=== PATIENT | female | born 1970 | race Caucasian/White ===

== ENCOUNTER 2019-03-26 13:44 | Outpatient (CLI) | payer BC ==
--- NOTE | 2019-03-26 14:47 | MMO ---
Bilateral MAMMO Bilat Screen [facility]. CLINICAL HISTORY: Patient is 48 years old and is seen for screening. The patient has no family history of breast cancer. The patient has no personal history of cancer. VIEWS: The views performed were: bilateral craniocaudal with tomosynthesis and bilateral mediolateral oblique with tomosynthesis. FILMS COMPARED: The present examination has been compared to prior imaging studies performed at [facility] on 09/27/2014, 12/12/2015, 12/17/2016 and 06/23/2017. MAMMOGRAM FINDINGS: The breasts are heterogeneously dense, which could obscure a lesion on mammography. There are benign appearing densities seen in both breasts. There are no suspicious masses, suspicious calcifications, or new areas of architectural distortion. IMPRESSION: THERE IS NO MAMMOGRAPHIC EVIDENCE OF MALIGNANCY. A ROUTINE FOLLOW-UP MAMMOGRAM IN 1 YEAR IS RECOMMENDED. THE RESULTS OF THIS EXAM WERE SENT TO THE PATIENT. ACR BI-RADS Category 2 - Benign finding MAMMOGRAPHY NOTE: 1. A negative mammogram report should not delay a biopsy if a dominant of clinically suspicious mass is present. 2. Approximately 10% to 15% of breast cancers are not detected by mammography. 3. Adenosis and dense breasts may obscure an underlying neoplasm.
== END 2019-03-26 13:45 | disposition home or self-care (01) ==
LOC: BICMAMMO 13:44
PROVIDERS: ATTEND Internal Medicine
DX: Z12.31 Encounter for screening mammogram for malignant neoplasm of breast (principal)
CPT/HCPCS: 77063; 77067

== ENCOUNTER 2019-05-06 19:30 | Outpatient (CLI) | payer BC | END 2019-05-06 19:31 | disposition home or self-care (01) | LOC: SLEEPLAB 19:30 | PROVIDERS: ATTEND Internal Medicine | DX: G47.33 Obstructive sleep apnea (adult) (pediatric) (principal); R53.83 Other fatigue; R09.89 Other specified symptoms and signs involving the circulatory and respiratory systems; R06.83 Snoring; E66.9 Obesity, unspecified; G47.00 Insomnia, unspecified; G47.10 Hypersomnia, unspecified; Z68.34 Body mass index [BMI] 34.0-34.9, adult | CPT/HCPCS: 95810 ==

== ENCOUNTER 2019-05-12 19:30 | Outpatient (CLI) | payer BC | END 2019-05-12 19:31 | disposition home or self-care (01) | LOC: SLEEPLAB 19:30 | PROVIDERS: ATTEND Internal Medicine | DX: G47.33 Obstructive sleep apnea (adult) (pediatric) (principal); R53.83 Other fatigue; R09.89 Other specified symptoms and signs involving the circulatory and respiratory systems; R06.83 Snoring; G47.00 Insomnia, unspecified; G47.10 Hypersomnia, unspecified; I10 Essential (primary) hypertension; E66.9 Obesity, unspecified; Z68.34 Body mass index [BMI] 34.0-34.9, adult | CPT/HCPCS: 95811 ==

== ENCOUNTER 2019-11-04 07:45 | Outpatient (CLI) | payer BC ==
--- NOTE | 2019-11-04 08:56 | CT ---
CT of theabdomen and pelvis with and without contrast: 11/04/2019 COMPARISON:04/15/2017 HISTORY:Nausea, pain, vomiting, questionable pancreatic abnormality on prior CT performed 2016 TECHNIQUE: Serial axial CT imaging at3 mm intervals from thelung bases through pubic symphysis with a nd without IV contrast, with oral contrast. Coronal and sagittal reformatted imaging. Findings:Atelectatic changes are noted within the right middle lobe and lingula. Cholecystectomy clips are present. No free intraperitoneal air or fluid. Small fat-containing umbilic al hernia. Liver, spleen, pancreas, adrenal glands, and kidneys demonstrate no acute findings. The tail of the pancreas demonstrates a somewhat rounded configuration which measures approximately 1 .8 cm, unchanged when compared to the prior 2017 exam. This is favored to represent a normal pancreatic parenchymal lobulation or a small focus of splenic tissue within the pancreatic tail. This could be best assessed via MRI or nuclear medicine liver spleen scan if clinically warranted. The uterus appears surgically absent. No evidence for bowel inflammatory change or bowel obstruction. The vascular structures of the abdomen/pelvis appear unremarkable. No lymphadenopathy is appreciated within the abdomen or pelvis. Review of the osseous structures demonstrates no worrisome lytic or blastic bone lesion. There is sig nificant lower lumbar spine degenerative change. Impression:No acute findings are noted. There is a stable lobulated area of soft tissue density in th e pancreatic tail which may signify splenic tissue in the pancreatic tail or a pancreatic parenchymal lobulation. Please see above discussion.
[2019-11-04] MEDS ORDERED: Iopamidol-370 76% 500 ML 1 ML ONE (16:21)
== END 2019-11-04 07:46 | disposition home or self-care (01) ==
LOC: BICCT 07:45
PROVIDERS: ATTEND Internal Medicine
DX: K86.89 Other specified diseases of pancreas (principal); Q45.3 Other congenital malformations of pancreas and pancreatic duct
CPT/HCPCS: 74178; Q9967

== ENCOUNTER 2020-03-09 08:57 | Outpatient (CLI) | payer BC ==
--- NOTE | 2020-03-09 11:25 | MRI ---
MRI LUMBAR SPINE 03/09/2020. PROVIDED CLINICAL HISTORY: Lumbar radiculopathy. FINDINGS: Five lumbar vertebral bodies are assumed. Lumbar alignment appears normal. Vertebral body heights a ppear preserved. No focal concerning regional marrow signal abnormality apparent. The conus medulla ris is normal in signal and terminates at an appropriate level. At L1-2, there is Schmorl's node formation within the inferior end plate of L1 and the superior end p late of L2. There is a broad disk bulge without significant central canal or foraminal narrowing cari arent. At L2-3, there is maintenance of disk space height and hydration. There is no significant central ca nal or foraminal narrowing apparent. At L3-4, there is disk space height loss and end plate degenerative change. There is bilateral facet arthritis. There is no significant central canal or foraminal narrowing apparent. At L4-5, there is disk space height loss and a broad-based disk bulge with bilateral facet arthritis. There is moderate right foraminal narrowing with potential for impingement on the exiting right L4 nerve root. There is no significant central canal or left foraminal narrowing apparent. At L5-S1, there is end plate degenerative change and a broad-based disk bulge with bilateral facet ar thritis. There is no significant central canal or foraminal narrowing apparent. IMPRESSION: Lumbar disk and facet degenerative change producing primarily foraminal narrowing as described above. POS: [facility]
== END 2020-03-09 08:58 | disposition home or self-care (01) ==
LOC: TBSIIMAG 08:57
PROVIDERS: ATTEND Internal Medicine
DX: M47.26 Other spondylosis with radiculopathy, lumbar region (principal); M48.061 Spinal stenosis, lumbar region without neurogenic claudication
CPT/HCPCS: 72148

== ENCOUNTER 2020-03-23 13:48 | Outpatient (CLI) | payer BC ==
--- NOTE | 2020-03-23 14:25 | RAD ---
LUMBAR SPINE: 03/23/20 Four views. HISTORY: Low back pain. In the AP projection there is a scoliotic curvature with convexity to the right measuring approximate ly 10 degrees. The AP is at the L3 level. There is loss of disc space at L3-4, L4-5, and L5-S1. Also mild loss of disc space at L1-2. The L2-3 disc is preserved. On the lateral view, there is no evidence of spondylolisthesis. Degenerative spurring is seen from th e vertebrae and there is facet hypertrophy noted posteriorly. IMPRESSION: Mild scoliotic curvature with convexity to the right. Degenerative disc changes of the lumbar spine a s described. POS: [facility]
== END 2020-03-23 13:49 | disposition home or self-care (01) ==
LOC: BICRAD 13:48
PROVIDERS: ATTEND Neurological Surgery
DX: M54.5 Low back pain (principal); M51.36 Other intervertebral disc degeneration, lumbar region; M41.9 Scoliosis, unspecified
CPT/HCPCS: 72110

== ENCOUNTER 2020-03-28 08:57 | Outpatient (CLI) | payer BC ==
--- NOTE | 2020-03-28 09:36 | MMO ---
Bilateral MAMMO Bilat Screen [facility]. CLINICAL HISTORY: Patient is 49 years old and is seen for screening. The patient has no family history of breast cancer. The patient has no personal history of cancer. VIEWS: The views performed were: bilateral craniocaudal with tomosynthesis and bilateral mediolateral oblique with tomosynthesis. FILMS COMPARED: The present examination has been compared to prior imaging studies performed at [facility] on 12/12/2015, 12/17/2016, 06/23/2017 and 03/26/2019. This study has been interpreted with the assistance of computer-aided detection. MAMMOGRAM FINDINGS: The breasts are heterogeneously dense, which could obscure a lesion on mammography. There are no suspicious masses, suspicious calcifications, or new areas of architectural distortion. IMPRESSION: THERE IS NO MAMMOGRAPHIC EVIDENCE OF MALIGNANCY. A ROUTINE FOLLOW-UP MAMMOGRAM IN 1 YEAR IS RECOMMENDED. THE RESULTS OF THIS EXAM WERE SENT TO THE PATIENT. ACR BI-RADS Category 1 - Negative MAMMOGRAPHY NOTE: 1. A negative mammogram report should not delay a biopsy if a dominant of clinically suspicious mass is present. 2. Approximately 10% to 15% of breast cancers are not detected by mammography. 3. Adenosis and dense breasts may obscure an underlying neoplasm. Reported by: CAROLIN AVALOS MD Electonically Signed: [id number]
== END 2020-03-28 08:58 | disposition home or self-care (01) ==
LOC: BICMAMMO 08:57
PROVIDERS: ATTEND Internal Medicine
DX: Z12.31 Encounter for screening mammogram for malignant neoplasm of breast (principal)
CPT/HCPCS: 77063; 77067

== ENCOUNTER 2020-11-16 09:59 | Outpatient (CLI) | payer BC ==
[2020-11-16 17:26] LABS: SARS-CoV-2 PCR by NAA Not Detected (NotDetected)
== END 2020-11-16 10:00 | disposition home or self-care (01) ==
LOC: LABBT 09:59
PROVIDERS: ATTEND Anesthesiology Pain Medicine
DX: M96.1 Postlaminectomy syndrome, not elsewhere classified (principal)
CPT/HCPCS: 87635; U0003; U0005

== ENCOUNTER 2020-11-21 11:28 | Day surgery (SDC) | payer BC ==
[2020-11-20 11:05] VITALS: BMI 29.5
[~2020-11-21 11:28] MED LIST: Lidocaine 1% PF 5 ML VIAL ONE; PROPOFOL 200 MG/20 ML VIAL ONE
[2020-11-21] MEDS ORDERED: CEFAZOLIN 1 GM VIAL ONE (12:56)
[2020-11-21] MEDS ORDERED: Sodium Chloride 0.9% 100 ML ONE (12:57)
[2020-11-21] MEDS ORDERED: Midazolam HCl 2 mg/2 ml Vial ONE (14:20)
[2020-11-21] MEDS ORDERED: Fentanyl 100 MCG/2 ML VIAL ONE (14:20)
[2020-11-21] MEDS ORDERED: EPINEPHrine 1 MG/ML AMP ONE (14:35)
[2020-11-21] MEDS ORDERED: Lidocaine 2% PF 5 ML VIAL ONE (14:35)
[2020-11-21] MEDS ORDERED: Bupivacaine PF 0.5% 30 ML VIAL ONE (14:35)
[2020-11-21] MEDS ORDERED: Ondansetron PF 4 MG/2 ML Vial ONE (16:28)
[2020-11-21] MEDS ORDERED: HYDROcodone/Acetaminophen 5/325 mg Tablet ONE (16:38)
--- NOTE | 2020-11-22 07:18 | OP ---
DATE OF PROCEDURE: 11/21/2020 PREOPERATIVE DIAGNOSES: 1. Postlaminectomy syndrome. 2. Chronic pain syndrome. 3. Chronic lumbar radiculopathy. POSTOPERATIVE DIAGNOSES: 1. Postlaminectomy syndrome. 2. Chronic pain syndrome. 3. Chronic lumbar radiculopathy. PROCEDURES PERFORMED: 1. Implantation of spinal cord stimulation array, right side, 8 contacts, [employer]. 2. Implantation of spinal cord stimulation electrode array, left side, 8 contacts, [employer]. 3. Implantation of internal pulse generator [employer]. 4. Intraoperative programming. 5. Fluoroscopic guidance. ANESTHESIA: TIVA. COMPLICATIONS: None. BLOOD LOSS: Less than 15 mL. SUMMARY: Risks and benefits were discussed with the patient including, but not limited to, bleeding, infection, possible nerve damage, worsening pain or relief of pain. She has had a prior successful trial of spinal cord stimulation. She was taken to the OR, prepped and draped in standard fashion. Fluoroscopic guidance was used to identify the T12-L1 and L1-L2 interspace. L1-L2 interspace chosen as entry into this epidural space. Incision was carried down after adequate local anesthesia to the spinous processes over L1 through L2-L3, blunt dissection to the supraspinous ligament using the supplied Touhy needle, loss of resistance technique, one pass, no paresthesia, CSF, or heme. The epidural space was easily identified. The first electrode array was implanted over the right side with the cephalad electrode at the inferior endplate of T7. The left electrode was placed in an identical fashion without complication. Intraoperative programming achieved appropriate back and right greater than left leg stimulation concordant overlapping with the patient's pain. At this point, the stylets were removed. The needles were removed, ensuring that the lead stayed in place. Anchors were placed over the leads. Each anchor was sewn using 2-0 silk sutures to the fascia and then each anchor was locked into place. The right buttock was chosen preoperatively by the patient as site for the IPG. Adequate local anesthesia, incision was carried down to the fascia. Fascia was undermined making the pocket. The tunneling was accomplished between incisions using the straw tunneler. Leads were passed through the straw. Straw was removed. Leads were connected to the IPG. All set screws were tightened and checked for appropriate impedance and functionality. The IPG was then placed in the pocket riding side out. All counts were correct x2. Closure was accomplished in layers using 2-0 Vicryl with the skin closed with a 3-0 running subcuticular Rapide. Mastisol, Steri-Strips, 4x4s, and Medipore tape for dressing. Prior to closure, all counts were correct x2. No complications. Job ID: [id number]
== END 2020-11-21 17:30 | disposition home or self-care (01) ==
LOC: SDC 11:28
PROVIDERS: ATTEND Anesthesiology Pain Medicine
PROC: 0JH Subcutaneous Tissue and Fascia, Insertion (ICD-10-PCS; principal; 2020-11-21)
PROC: 00HV0MZ Insertion of Neurostimulator Lead into Spinal Cord, Open Approach (ICD-10-PCS; principal; 2020-11-21)
DX: G89.4 Chronic pain syndrome (principal); M96.1 Postlaminectomy syndrome, not elsewhere classified; M47.26 Other spondylosis with radiculopathy, lumbar region; J45.909 Unspecified asthma, uncomplicated; F41.9 Anxiety disorder, unspecified; M19.90 Unspecified osteoarthritis, unspecified site; G43.909 Migraine, unspecified, not intractable, without status migrainosus; Z79.899 Other long term (current) drug therapy; Z87.891 Personal history of nicotine dependence; Z88.5 Allergy status to narcotic agent; Z91.012 Allergy to eggs; Z91.040 Latex allergy status; Z91.048 Other nonmedicinal substance allergy status
CPT/HCPCS: C1767; J0171; J0690; J2001; J2250; J2405; J2704; J3010; J3490; S0020

== ENCOUNTER 2022-04-22 08:09 | Outpatient (CLI) | payer BC | END 2022-04-22 08:10 | disposition home or self-care (01) | LOC: BICMAMMO 08:09 | PROVIDERS: ATTEND Internal Medicine | DX: Z12.31 Encounter for screening mammogram for malignant neoplasm of breast (principal); Z80.3 Family history of malignant neoplasm of breast | CPT/HCPCS: 77063; 77067 ==

== ENCOUNTER 2023-07-01 13:28 | Outpatient (CLI) | payer BC | END 2023-07-01 13:29 | disposition home or self-care (01) | LOC: BICMAMMO 13:28 | PROVIDERS: ATTEND Internal Medicine | DX: Z12.31 Encounter for screening mammogram for malignant neoplasm of breast (principal); Z80.3 Family history of malignant neoplasm of breast | CPT/HCPCS: 77063; 77067 ==

== ENCOUNTER 2024-09-24 11:49 | Outpatient (CLI) | payer BC | END 2024-09-24 11:50 | disposition home or self-care (01) | LOC: BICMAMMO 11:49 | PROVIDERS: ATTEND Internal Medicine | DX: Z12.31 Encounter for screening mammogram for malignant neoplasm of breast (principal); Z80.3 Family history of malignant neoplasm of breast | CPT/HCPCS: 77063; 77067 ==

== ENCOUNTER 2024-10-07 12:47 | Outpatient (CLI) | payer BC | END 2024-10-07 12:48 | disposition home or self-care (01) | LOC: MRI 12:47 | PROVIDERS: ATTEND Specialist | DX: H90.3 Sensorineural hearing loss, bilateral (principal) | CPT/HCPCS: 70553; 76376 ==